=== PATIENT | female | born 1980 | race Caucasian/White ===

== ENCOUNTER 2017-08-01 14:48 | Emergency (ER) | payer MEDICAID ==
[~2017-08-01] VITALS: Ht 165.1 cm; Wt 68.0 kg
--- NOTE | 2017-08-01 15:00 | NUR ---
Pt triaged and placed in ER lobby, there are no ER beds available at this time.
--- NOTE | 2017-08-01 17:13 | NUR ---
[place] removed by .
[2017-08-01 17:16] VITALS: BP 116/69
--- NOTE | 2017-08-01 17:17 | NUR ---
Patient discharged to home in stable conditon. Written and verbal after care instructions given. Patient verbalizes understanding of instructions.
== END 2017-08-01 17:17 | disposition home or self-care (01) ==
LOC: ER 14:48
DX: S01.01XD Laceration without foreign body of scalp, subsequent encounter (principal); F17.210 Nicotine dependence, cigarettes, uncomplicated; Z48.02 Encounter for removal of sutures; X58.XXXD Exposure to other specified factors, subsequent encounter
CPT/HCPCS: A4663

== ENCOUNTER 2018-09-13 21:45 | Emergency (ER) | payer MEDICAID ==
[~2018-09-13] VITALS: Ht 165.1 cm; Wt 71.2 kg
--- NOTE | 2018-09-13 21:57 | NUR ---
Patient ambulated with stable gait. AAOx4. Speech is clear, speaks in complete sentences. No neuro deficits. Patient came in with c/o chest pain x1 week, with worsening pain. Respiratory even and unlabored, no sob. No GI/ distress. Patient in bed at lowest position, sr upx2, call light within in reach. Fall precautions implemented per protocol.
[2018-09-13 22:07] LABS: BASOPHILS # (AUTO) 0.1 K/uL (0.0-8.0); BASOPHILS % (AUTO) 1.4 % (0.0-2.0); EOSINOPHILS # (AUTO) 0.3 K/uL (0.0-0.7); EOSINOPHILS % (AUTO) 2.3 % (0.0-7.0); HEMATOCRIT 41.3 % (31.2-41.9); HEMOGLOBIN 13.5 g/dL (10.9-14.3); LYMPHOCYTES # (AUTO) 3.4 K/uL (20.0-40.0); LYMPHOCYTES % (AUTO) 31.1 % (20.5-51.5); MEAN CORPUSCULAR HEMOGLOBIN 28.3 uug (24.7-32.8); MEAN CORPUSCULAR HGB CONC 33 g/dL (32.3-35.6); MEAN CORPUSCULAR VOLUME 86.8 fL (75.5-95.3); MONOCYTES # (AUTO) 0.8 K/uL (2.0-10.0); MONOCYTES % (AUTO) 7.4 % (0.0-11.0); NEUTROPHILS # (AUTO) 6.3 K/uL (1.8-8.9); NEUTROPHILS % (AUTO) 57.8 % (38.5-71.5); PLATELET COUNT (AUTO) 293 K/uL (179-408); RED BLOOD CELL COUNT(AUTO) 4.76 MIL/uL (3.63-4.92); WHITE BLOOD COUNT (AUTO) 10.9 K/uL (3.8-11.8)
[2018-09-13 22:16] LABS: CREATININE 0.7 mg/dL (0.6-1.3); POTASSIUM 3.5 mmol/L (3.5-5.1)
[2018-09-13 22:30] LABS: *URINE HCG, QUAL POSITIVE (NEGATIVE)
--- NOTE | 2018-09-13 23:06 | NUR ---
US at bedside for scan
--- NOTE | 2018-09-14 00:08 | NUR ---
Patient does not wish to proceed with medical care recommended by Dr. Conley . Patient given information related to possible complications, up to and including , which could occur as a result of leaving the hospital at this time. Patient verbalizes understanding of risks involved due to leaving against medical advice. Patient has signed AMA form.
[2018-09-14 00:09] VITALS: BP 140/80
== END 2018-09-14 00:10 | disposition left against medical advice (07) ==
LOC: ER 21:46
DX: R07.89 Other chest pain (principal); F17.290 Nicotine dependence, other tobacco product, uncomplicated
CPT/HCPCS: 36415; 70030-TC; 84703; 85025; 93005; A4663

== ENCOUNTER 2019-02-16 18:54 | Emergency (ER) | payer MEDICAID ==
[~2019-02-16] VITALS: Ht 167.6 cm; Wt 76.2 kg
--- NOTE | 2019-02-16 19:34 | NUR ---
ERMD at bedside for MSE
[2019-02-16] MEDS ORDERED: HYDROCODONE/APAP 5-325MG TABLET PO ONE (19:45)
--- NOTE | 2019-02-16 19:47 | NUR ---
Patient refused Fost[place] 5mg. ERMD aware.
[2019-02-16] MEDS ORDERED: HYDROCODONE/APAP 5-325MG TABLET ONE (19:49)
--- NOTE | 2019-02-16 19:54 | NUR ---
Patient discharged to home in stable conditon. Written and verbal after care instructions given. Patient verbalizes understanding of instructions. Patient ambulated with stable gait. CMS intact
[2019-02-16 20:12] VITALS: BP 121/81
== END 2019-02-16 19:54 | disposition home or self-care (01) ==
LOC: ER 18:57
DX: M79.621 Pain in right upper arm (principal); M25.511 Pain in right shoulder; Z90.49 Acquired absence of other specified parts of digestive tract; F17.200 Nicotine dependence, unspecified, uncomplicated; W10.9XXA Fall (on) (from) unspecified stairs and steps, initial encounter; Y93.89 Activity, other specified; Y92.89 Other specified places as the place of occurrence of the external cause; Y99.8 Other external cause status
CPT/HCPCS: A4663

== ENCOUNTER 2019-03-24 01:39 | Emergency (ER) | payer MEDICAID ==
[~2019-03-24] VITALS: Ht 165.1 cm; Wt 76.7 kg
--- NOTE | 2019-03-24 02:05 | NUR ---
DR. SCHULZ AT BEDSIDE FOR MSE.
[2019-03-24 02:12] LABS: *BILIRUBIN,URIN NEGATIVE (NEGATIVE); *BLOOD, URINE NEGATIVE (NEGATIVE); *CLARITY,URINE CLEAR (CLEAR); *COLOR,URINE STRAW (YELLOW); *KETONES,URINE NEGATIVE (NEGATIVE); *UROBILINOGEN,URINE 0.2 E.U./dl (NORMAL); LEUKOCYTE ESTERASE ,URINE NEGATIVE (NEGATIVE); NITRITE, URINE NEGATIVE (NEGATIVE); UGLUCOSE NEGATIVE (NEGATIVE)
[2019-03-24 02:16] LABS: *URINE HCG, QUAL NEGATIVE (NEGATIVE)
[2019-03-24] MEDS ORDERED: KETOROLAC TROMETHAMINE 60 MG INJ IM ONE ×2 (02:30)
[2019-03-24 02:34] VITALS: BP 120/76
== END 2019-03-24 02:35 | disposition home or self-care (01) ==
LOC: ER 01:43
DX: S39.012A Strain of muscle, fascia and tendon of lower back, initial encounter (principal); R30.0 Dysuria; F17.200 Nicotine dependence, unspecified, uncomplicated; Z90.49 Acquired absence of other specified parts of digestive tract; X58.XXXA Exposure to other specified factors, initial encounter; Y93.89 Activity, other specified; Y92.89 Other specified places as the place of occurrence of the external cause; Y99.8 Other external cause status
CPT/HCPCS: 81001; 84703; 96372; 99283; J1885; A4663

== ENCOUNTER 2020-09-25 16:02 | Emergency (ER) | payer MEDICAID ==
[~2020-09-25] VITALS: Ht 167.6 cm; Wt 74.4 kg
[2020-09-25] MEDS ORDERED: PHENAZOPYRIDINE HCL 100 MG TABLET PO ONE (16:30)
[2020-09-25] MEDS ORDERED: IBUPROFEN 600 MG TABLET PO ONE (16:30)
[2020-09-25] MEDS ORDERED: CEphaleXIN 500 MG CAPSULE PO ONE (16:30)
[2020-09-25] MEDS ORDERED: CEphaleXIN 500 MG CAPSULE ONE (16:45)
[2020-09-25] MEDS ORDERED: IBUPROFEN 600 MG TABLET ONE (16:46)
[2020-09-25] MEDS ORDERED: PHENAZOPYRIDINE HCL 100 MG TABLET ONE (16:46)
[2020-09-25 17:07] LABS: *BILIRUBIN,URIN 1+ (NEGATIVE); *BLOOD, URINE 2+ (NEGATIVE); *COLOR,URINE DARK YELLOW (YELLOW); *KETONES,URINE 1+ (NEGATIVE); LEUKOCYTE ESTERASE ,URINE TRACE (NEGATIVE); NITRITE, URINE POSITIVE (NEGATIVE); UGLUCOSE TRACE (NEGATIVE)
[2020-09-25 17:08] LABS: *URINE HCG, QUAL NEGATIVE (NEGATIVE)
[2020-09-25] MEDS ORDERED: PHEN-705 PO (17:11)
[2020-09-25] MEDS ORDERED: CEPH500C2 PO (17:11)
[2020-09-25 17:21] LABS: *CLARITY,URINE CLOUDY (CLEAR); RBC,URINE 80-100 /HPF (0-3)
[2020-09-25 17:22] LABS: BACTERIA,URINE FEW /HPF (NONE SEEN); MUCUS,URINE FEW /LPF (0-FEW); SQUAMOUS EPITHELIAL CELL,UR MODERATE /HPF (NONE SEEN)
== END 2020-09-25 17:49 | disposition home or self-care (01) ==
LOC: ER 16:04
DX: N39.0 Urinary tract infection, site not specified (principal); F17.210 Nicotine dependence, cigarettes, uncomplicated
CPT/HCPCS: 84703; 87077; 87086; A4663

== ENCOUNTER 2021-01-27 21:09 | Emergency (ER) | payer MEDICAID ==
[~2021-01-27] VITALS: Ht 167.6 cm; Wt 78.5 kg
[~2021-01-27 21:09] MED LIST: CEPH500C2 PO; PHEN-705 PO
--- NOTE | 2021-01-27 21:35 | NUR ---
PT AMBULATED TO ER WITH C/O DYSURIA AND POLYURIA X3 DAYS. A/O X4, NO SOB OR LABORED BREATHING, AFEBRILE. DENIES CP/PRESSURE. CLEAR SPEECH, COMPLETE SENTENCES.
--- NOTE | 2021-01-27 21:38 | NUR ---
DR. HAN AT BEDSIDE, MSE IN PROGRESS.
[2021-01-27 21:44] LABS: *URINE HCG, QUAL NEGATIVE (NEGATIVE)
[2021-01-27 21:45] LABS: *BILIRUBIN,URIN NEGATIVE (NEGATIVE); *BLOOD, URINE 3+ (NEGATIVE); *CLARITY,URINE SLIGHTLY CLOUDY (CLEAR); *COLOR,URINE YELLOW (YELLOW); *KETONES,URINE NEGATIVE (NEGATIVE); *UROBILINOGEN,URINE 0.2 E.U./dl (NORMAL); LEUKOCYTE ESTERASE ,URINE 1+ (NEGATIVE); NITRITE, URINE NEGATIVE (NEGATIVE); UGLUCOSE NEGATIVE (NEGATIVE)
[2021-01-27 21:53] LABS: BACTERIA,URINE MANY /HPF (NONE SEEN); RBC,URINE TNTC /HPF (0-3); SQUAMOUS EPITHELIAL CELL,UR FEW /HPF (NONE SEEN); URINE AMORPHOUS URATE FEW /HPF; WBC,URINE TNTC /HPF (0-3)
[2021-01-27] MEDS ORDERED: OXYC-128 PO (22:12)
[2021-01-27] MEDS ORDERED: SULF1TAB48 PO (22:12)
--- NOTE | 2021-01-27 22:39 | NUR ---
Patient discharged to home in stable condition. A/O x4, no SOB or labored breathing, afebrile. Denies pain/discomfort at this time. Written and verbal after care instructions given. Patient verbalizes understanding of instructions. Stressed follow up or return to ER for worsening s/s. Steady gait.
[2021-01-27 22:40] VITALS: BP 127/73
== END 2021-01-27 22:41 | disposition home or self-care (01) ==
LOC: ER 21:10
DX: N30.91 Cystitis, unspecified with hematuria (principal)
CPT/HCPCS: 84703; 87077; 87086; A4663

== ENCOUNTER 2021-02-26 14:48 | Emergency (ER) | payer MEDICAID ==
[~2021-02-26] VITALS: Ht 167.6 cm; Wt 78.5 kg
[~2021-02-26 14:48] MED LIST changes: +OXYC-128 PO; +SULF1TAB48 PO
--- NOTE | 2021-02-26 15:26 | NUR ---
PT IS IN ROOM #2B. DR PRATT EVALUATED THE PT.
[2021-02-26 16:00] LABS: *BILIRUBIN,URIN NEGATIVE (NEGATIVE); *BLOOD, URINE TRACE (NEGATIVE); *CLARITY,URINE CLEAR (CLEAR); *COLOR,URINE YELLOW (YELLOW); *KETONES,URINE NEGATIVE (NEGATIVE); *URINE HCG, QUAL NEGATIVE (NEGATIVE); *UROBILINOGEN,URINE 0.2 E.U./dl (NORMAL); LEUKOCYTE ESTERASE ,URINE TRACE (NEGATIVE); NITRITE, URINE NEGATIVE (NEGATIVE); PH,URINE 5.5 (5.0-8.0); UGLUCOSE NEGATIVE (NEGATIVE)
[2021-02-26 16:11] LABS: BACTERIA,URINE FEW /HPF (NONE SEEN); MUCUS,URINE MODERATE /LPF (0-FEW); RBC,URINE 0-3 /HPF (0-3); SQUAMOUS EPITHELIAL CELL,UR MODERATE /HPF (NONE SEEN); URINE AMORPHOUS URATE FEW /HPF
[2021-02-26] MEDS ORDERED: NITR100C6 PO (16:15)
--- NOTE | 2021-02-26 16:29 | NUR ---
PT WAS D/C'd TO HOME. D/C INSTRUCTIONS GIVEN TO THE PT BY DR PRATT.
[2021-02-26 16:30] VITALS: BP 129/68
== END 2021-02-26 16:30 | disposition home or self-care (01) ==
LOC: ER 14:50
DX: N30.90 Cystitis, unspecified without hematuria (principal); Z87.440 Personal history of urinary (tract) infections; F17.200 Nicotine dependence, unspecified, uncomplicated; R03.0 Elevated blood-pressure reading, without diagnosis of hypertension
CPT/HCPCS: 84703; 87077; 87086; A4663

== ENCOUNTER 2021-12-12 20:58 | Emergency (ER) | payer MEDICAID ==
[~2021-12-12] VITALS: Ht 170.2 cm; Wt 77.1 kg
[~2021-12-12 20:58] MED LIST changes: +NITR100C6 PO
--- NOTE | 2021-12-12 21:03 | NUR ---
Patient walked to the ER with steady gait. NAD noted.
--- NOTE | 2021-12-12 21:15 | NUR ---
Dr Contreras in room MSE in progress
[2021-12-12] MEDS ORDERED: LIDOCAINE VISCUS 2% 15 ML UDC MM ONE (21:30)
[2021-12-12] MEDS ORDERED: DICYCLOMINE HCL LIQ 10 MG/5 ML UDC PO ONE (21:30)
[2021-12-12] MEDS ORDERED: MAG HYDROX/AL HYDROX/SIMETH 30 ML LIQUID UDC PO ONE (21:30)
[2021-12-12 21:34] LABS: *URINE HCG, QUAL NEG (NEGATIVE)
[2021-12-12] MEDS ORDERED: DICYCLOMINE HCL LIQ 10 MG/5 ML UDC ONE (21:35)
[2021-12-12] MEDS ORDERED: MAG HYDROX/AL HYDROX/SIMETH 30 ML LIQUID UDC ONE (21:35)
[2021-12-12] MEDS ORDERED: LIDOCAINE VISCUS 2% 15 ML UDC ONE (21:35)
[2021-12-12 21:51] LABS: HEMATOCRIT 40.4 % (31.2-41.9); MEAN CORPUSCULAR HEMOGLOBIN 29.7 uug (24.7-32.8); MEAN CORPUSCULAR VOLUME 87.1 fL (75.5-95.3); PLATELET COUNT (AUTO) 325 K/uL (179-408)
[2021-12-12 22:02] LABS: BILIRUBIN,DIRECT 0.1 mg/dL (0.0-0.2); BILIRUBIN,TOTAL 0.3 mg/dL (0.2-1.0); CREATININE 0.9 mg/dL (0.6-1.3); POTASSIUM 3.4 mmol/L (3.5-5.1); TOTAL PROTEIN, SERUM 8.1 g/dL (6.4-8.2)
[2021-12-12] MEDS ORDERED: IOHEXOL 300MG/ML 100 ML INFUS..BTL ONE (22:27)
[2021-12-12] MEDS ORDERED: SWABABLE VALVE TRANSFER SET EA MC ONE (22:27)
[2021-12-12] MEDS ORDERED: IV NORMAL SALINE 250 ML IV ONE (22:27)
--- NOTE | 2021-12-12 22:36 | NUR ---
Patient taken to CT
--- NOTE | 2021-12-12 22:55 | NUR ---
Patient back from CT
--- NOTE | 2021-12-12 23:11 | NUR ---
Patient is a/ox4, NAD noted
[2021-12-12] MEDS ORDERED: FAMO-132 PO (23:27)
--- NOTE | 2021-12-12 23:30 | NUR ---
Patient discharged to home in stable condition. Written and verbal after care instructions given. Patient verbalizes understanding of instructions. Stressed follow up or return to ER for worsening s/s.
[2021-12-12 23:38] VITALS: BP 119/75
== END 2021-12-12 23:30 | disposition home or self-care (01) ==
LOC: ER 21:01
DX: R10.12 Left upper quadrant pain (principal); E87.6 Hypokalemia; R00.0 Tachycardia, unspecified; F17.210 Nicotine dependence, cigarettes, uncomplicated; Z87.440 Personal history of urinary (tract) infections
CPT/HCPCS: 36415; 74177; 80048; 80076; 83690; 84484; 84703; 85025; 93005; 99285; Q9967; A4663

== ENCOUNTER 2023-11-27 21:21 | Emergency (ER) | payer MEDICAID ==
[~2023-11-27] VITALS: Ht 167.6 cm; Wt 78.0 kg
[~2023-11-27 21:21] MED LIST changes: +FAMO-132 PO
[2023-11-27] MEDS ORDERED: ONDA4TAB11 PO (23:56)
[2023-11-27] MEDS ORDERED: HYDR-3980 PO (23:56)
[2023-11-28] MEDS ORDERED: PENICILLIN G BENZATHINE 2.4 MMU/4 ML DISP.SYRIN IM ONE (00:06)
[2023-11-28] MEDS: PENICILLIN G BENZATHINE 2.4 MMU/4 ML DISP.SYRIN IM ONE (00:15)
[2023-11-28 02:10] VITALS: BP 130/84; TEMP 97.8; O2SAT 97
== END 2023-11-28 00:30 | disposition home or self-care (01) ==
LOC: ER 21:23
DX: J02.0 Streptococcal pharyngitis (principal); F17.210 Nicotine dependence, cigarettes, uncomplicated; Z90.49 Acquired absence of other specified parts of digestive tract; Z79.899 Other long term (current) drug therapy; Z20.822 Contact with and (suspected) exposure to COVID-19
CPT/HCPCS: 99283; 87426; 86403; 96372; J0561; A4606; A4663

== ENCOUNTER 2024-02-14 17:07 | Emergency (ER) | payer MEDICAID ==
[~2024-02-14] VITALS: Ht 162.6 cm; Wt 78.0 kg
[~2024-02-14 17:07] MED LIST changes: +HYDR-3980 PO; +ONDA4TAB11 PO
[2024-02-14] MEDS ORDERED: AMOX-430 PO (18:03)
[2024-02-14] MEDS ORDERED: TDAP DIPH,PERTUSS,TET VAC/PF 0.5 ML DISP.SYRIN IM ONE (18:07)
[2024-02-14] MEDS ORDERED: AMOXICILLIN-CLAVUL 875-125MG TABLET ONE (18:08)
[2024-02-14] MEDS: AMOXICILLIN-CLAVUL 875-125MG TABLET PO ONE (18:14)
[2024-02-14] MEDS: TDAP DIPH,PERTUSS,TET VAC/PF 0.5 ML DISP.SYRIN IM ONE (18:17)
[2024-02-14 18:18] VITALS: BP 133/78; TEMP 98.2; O2SAT 98
== END 2024-02-14 18:19 | disposition home or self-care (01) ==
LOC: ER 17:09
DX: S51.831A Puncture wound without foreign body of right forearm, initial encounter (principal); F17.200 Nicotine dependence, unspecified, uncomplicated; Z79.891 Long term (current) use of opiate analgesic; Z79.899 Other long term (current) drug therapy; W50.3XXA Accidental bite by another person, initial encounter; Y93.89 Activity, other specified; Y92.89 Other specified places as the place of occurrence of the external cause; Y99.8 Other external cause status
CPT/HCPCS: 90715; A4606; A4663

== ENCOUNTER 2024-06-11 09:13 | Emergency (ER) | payer MEDICAID ==
[~2024-06-11] VITALS: Ht 167.6 cm; Wt 74.8 kg
[~2024-06-11 09:13] MED LIST changes: +AMOX-430 PO
[2024-06-11] MEDS ORDERED: AZIT500T PO (10:08)
[2024-06-11] MEDS ORDERED: PRED50TA PO (10:08)
[2024-06-11] MEDS ORDERED: PROM118S5 PO (10:12)
[2024-06-11] MEDS ORDERED: AZITHROMYCIN 250 MG TABLET ONE (10:17)
[2024-06-11] MEDS ORDERED: predniSONE 50 MG TABLET ONE (10:17)
[2024-06-11] MEDS: predniSONE 50 MG TABLET PO ONE (10:21)
[2024-06-11] MEDS: AZITHROMYCIN 250 MG TABLET PO ONE (10:21)
[2024-06-11 10:28] VITALS: BP 122/79; O2SAT 99
== END 2024-06-11 10:29 | disposition home or self-care (01) ==
LOC: ER 09:13
DX: J18.9 Pneumonia, unspecified organism (principal); F17.200 Nicotine dependence, unspecified, uncomplicated; Z79.52 Long term (current) use of systemic steroids; Z90.49 Acquired absence of other specified parts of digestive tract; Z88.7 Allergy status to serum and vaccine
CPT/HCPCS: 99283; J7512; A4606; A4663; Q0144